=== PATIENT | female | born 1935 | race Caucasian/White ===

== ENCOUNTER 2018-02-10 01:03 | Outpatient (CLI) | payer MEDICARE, MEDICAID, SELFPAY ==
[2018-02-10 12:05] LABS: Microalb ug/mg Crea 4.7 ug/mg Cr
[2018-02-10 12:19] LABS: Hemoglobin A1C 7.6 % (4.5-6.2)
[2018-02-10 12:36] LABS: Vitamin B12 581 pg/mL (193-986)
== END 2018-02-10 01:23 ==
PROVIDERS: PCP Family Medicine; Visit Provider Family Medicine
DX: E11.9 Type 2 diabetes mellitus without complications (principal); E53.8 Deficiency of other specified B group vitamins
CPT/HCPCS: 36415; 82043; 82570; 82607; 83036

== ENCOUNTER 2018-02-17 09:14 | Outpatient (CLI) | payer MEDICARE, MEDICAID, SELFPAY ==
[2018-02-17 11:13] LABS: Bilirubin Negative (Negative); Blood Small (Negative); Clarity Clear; Glucose 100 mg/dL (Negative); Ketones Negative (Negative); Leukocyte Esterase Trace (Negative); Nitrite Negative (Negative); Urobilinogen 0.2 EU/dL (Up TO 0.2)
[2018-02-17 11:23] LABS: Bacteria Few HPF (Negative); Crystals Negative HPF (Negative); Epithelial Cells Few HPF (Negative); Mucus Negative (Negative); Other Cells Few Renal (Negative); RBC 0-2 (0-2); WBC >50 HPF (0-5)
[2018-02-17 11:24] LABS: C & S Indicated? Yes; Casts Negative LPF (Negative)
== END 2018-02-17 09:34 ==
PROVIDERS: PCP Family Medicine; Visit Provider Family Medicine
DX: N39.0 Urinary tract infection, site not specified (principal); R31.9 Hematuria, unspecified
CPT/HCPCS: 87077; 81003; 81015; 87086; 87186

== ENCOUNTER 2018-03-25 11:30 | Outpatient (REF) | payer MEDICARE, MEDICAID, SELFPAY ==
[2018-03-25 12:31] LABS: Bilirubin Negative (Negative); Blood Small (Negative); Clarity Sl Cloudy; Glucose Negative (Negative); Ketones Negative (Negative); Leukocyte Esterase Moderate (Negative); Nitrite Negative (Negative); Urobilinogen 0.2 EU/dL (Up TO 0.2)
[2018-03-25 12:43] LABS: WBC >50 HPF (0-5)
[2018-03-25 12:44] LABS: Bacteria Many HPF (Negative); C & S Indicated? C&S Done As Ordered; Casts Negative LPF (Negative); Crystals Negative HPF (Negative); Epithelial Cells Many HPF (Negative); Mucus Trace (Negative); Other Cells Rare Renal (Negative); RBC Negative (0-2)
== END 2018-03-25 11:50 ==
LOC: LBN 11:30
PROVIDERS: PCP Family Medicine; Visit Provider Family Medicine
DX: R30.0 Dysuria (principal)
CPT/HCPCS: 87077; 81003; 81015; 87086; 87186

== ENCOUNTER 2018-05-19 02:33 | Outpatient (CLI) | payer MEDICARE, MEDICAID, SELFPAY ==
[2018-05-19 13:15] LABS: HCT 32.8 % (36.0-46.0); HGB 10.9 g/dL (12.0-15.5); Mean Corp. HGB Concentration 33.2 g/dL (32.0-36.0); Mean Corpuscular Hemoglobin 27.7 pg (27.0-33.0); Mean Corpuscular Volume 83.2 fL (80-95); RBC 3.94 m/cumm (4.00-5.20); RBC Distribution Width 16.8 % (11.7-14.6)
[2018-05-19 13:33] LABS: Hemoglobin A1C 8.2 % (4.5-6.2)
[2018-05-19 13:41] LABS: ALT 26 U/L (12-78); AST 17 U/L (15-37); Albumin 3.8 g/dL (3.4-5.0); Alkaline Phosphatase 105 U/L (46-116); Anion Gap 6.8 mmol/L (3-11); BUN 25 mg/dL (7-18); Bilirubin, Total 0.6 mg/dL (0.2-1.0); CO2 29.2 mmol/L (21.0-32.0); CREATININE 1.03 mg/dL (0.55-1.02); Calcium 8.9 mg/dL (8.5-10.1); Chloride 105 mmol/L (98-107); Glucose 182 mg/dL (70-100); Potassium 4.1 mmol/L (3.5-5.1); Sodium 141 mmol/L (136-145); TSH (W/Ref FT4) 1.61 uIU/mL (0.358-3.74); Total Protein 6.2 g/dL (6.4-8.2)
[2018-05-19 13:48] LABS: Platelet Count 25 x1000/uL (130-400)
== END 2018-05-19 02:53 ==
PROVIDERS: PCP Family Medicine; Visit Provider Family Medicine
DX: K59.09 Other constipation (principal); R42 Dizziness and giddiness; E11.8 Type 2 diabetes mellitus with unspecified complications; D61.818 Other pancytopenia; E78.5 Hyperlipidemia, unspecified; G43.909 Migraine, unspecified, not intractable, without status migrainosus; G47.00 Insomnia, unspecified; G89.4 Chronic pain syndrome
CPT/HCPCS: 36415; 80053; 85027; 83036; 84443

== ENCOUNTER 2018-05-26 09:01 | Outpatient (CLI) | payer MEDICARE, MEDICAID, SELFPAY ==
[2018-05-26 11:46] LABS: HCT 32.8 % (36.0-46.0); HGB 11.1 g/dL (12.0-15.5); Mean Corp. HGB Concentration 33.8 g/dL (32.0-36.0); Mean Corpuscular Hemoglobin 27.8 pg (27.0-33.0)
[2018-05-26 12:01] LABS: Platelet Count 31 x1000/uL (130-400)
== END 2018-05-26 09:21 ==
PROVIDERS: PCP Family Medicine; Visit Provider Family Medicine
DX: D69.6 Thrombocytopenia, unspecified (principal); D70.9 Neutropenia, unspecified
CPT/HCPCS: 36415; 85027

== ENCOUNTER → 2018-05-28 08:32 | Outpatient (BNVA) | payer MEDICARE, MEDICAID, SELFPAY | PROVIDERS: PCP Family Medicine; Visit Provider Nurse Practitioner Adult Health | DX: E11.40 Type 2 diabetes mellitus with diabetic neuropathy, unspecified (principal); R42 Dizziness and giddiness; I95.1 Orthostatic hypotension; R51 Headache; G31.84 Mild cognitive impairment of uncertain or unknown etiology; E11.319 Type 2 diabetes mellitus with unspecified diabetic retinopathy without macular edema; I10 Essential (primary) hypertension; Z79.4 Long term (current) use of insulin | CPT/HCPCS: 99215 ==

== ENCOUNTER 2018-05-29 13:36 | Outpatient (CLI) | payer MEDICARE, MEDICAID, SELFPAY ==
[2018-05-29 14:36] LABS: HCT 32.3 % (36.0-46.0); Mean Corp. HGB Concentration 34.1 g/dL (32.0-36.0); Mean Corpuscular Hemoglobin 28.2 pg (27.0-33.0); Mean Corpuscular Volume 82.8 fL (80-95); RBC Distribution Width 16.6 % (11.7-14.6)
[2018-05-29 15:13] LABS: White Blood Cell Count 0.54 k/cumm (4.4-10.8)
[2018-05-29 15:16] LABS: Platelet Count 26 x1000/uL (130-400)
[2018-05-29 15:17] LABS: Absolute Neutrophil Count 0.13 k/cumm (1.2-6.7)
[2018-05-29 15:19] LABS: Absolute Lymphocyte Count 0.37 k/cumm (1.2-3.4); Absolute Monocyte Count 0.04 k/cumm (0.11-0.7)
[2018-05-29 15:20] LABS: Diff Comment Manual Differential
[2018-05-29 15:21] LABS: Polychromasia Present
[2018-05-29 15:22] LABS: ESR 24 MM/HR (0-30); Poikilocytes 2+
[2018-05-30 12:11] LABS: Albumin 61.4 % (55.8-66.1); Total Protein 6.1 g/dl (6.3-8.2)
== END 2018-05-29 13:56 ==
PROVIDERS: Nurse Practitioner Adult Health; PCP Family Medicine; Referring Provider Psychiatry & Neurology Neurology; Visit Provider Internal Medicine
DX: G62.9 Polyneuropathy, unspecified (principal); D61.818 Other pancytopenia
CPT/HCPCS: 36415; 84166; 85652; 86850; 86900; 86901; 84165; 85025

== ENCOUNTER 2018-06-02 01:31 | Outpatient (CLI) | payer MEDICARE, MEDICAID, SELFPAY ==
[2018-06-02 09:04] LABS: HCT 31.4 % (36.0-46.0); HGB 10.5 g/dL (12.0-15.5); Mean Corp. HGB Concentration 33.4 g/dL (32.0-36.0); Mean Corpuscular Hemoglobin 27.9 pg (27.0-33.0); Mean Corpuscular Volume 83.3 fL (80-95); Mean Platelet Volume 9.2 fL (8.0-11.0); RBC 3.77 m/cumm (4.00-5.20); RBC Distribution Width 16.6 % (11.7-14.6)
[2018-06-02 09:57] LABS: Absolute Lymphocyte Count 0.37 k/cumm (1.2-3.4); Absolute Monocyte Count 0.08 k/cumm (0.11-0.7)
[2018-06-02 10:00] LABS: Platelet Count 26 x1000/uL (130-400)
[2018-06-02 10:01] LABS: Absolute Neutrophil Count 0.23 k/cumm (1.2-6.7); White Blood Cell Count 0.68 k/cumm (4.4-10.8)
[2018-06-02 10:03] LABS: Anisocytosis 1+; Diff Comment Manual Differential; Poikilocytes 2+
== END 2018-06-02 01:51 ==
LOC: LOS 01:31 → LBO 08:09
PROVIDERS: PCP Family Medicine; Visit Provider Internal Medicine
DX: D61.810 Antineoplastic chemotherapy induced pancytopenia (principal)
CPT/HCPCS: 36415; 86900; 86901; 85025

== ENCOUNTER 2018-06-09 01:54 | Outpatient (CLI) | payer MEDICARE, MEDICAID, SELFPAY ==
[2018-06-09 08:35] LABS: HCT 30.5 % (36.0-46.0); HGB 10.2 g/dL (12.0-15.5); Mean Corp. HGB Concentration 33.4 g/dL (32.0-36.0); Mean Corpuscular Volume 83.8 fL (80-95); Mean Platelet Volume 11.4 fL (8.0-11.0); RBC 3.64 m/cumm (4.00-5.20); RBC Distribution Width 16.7 % (11.7-14.6)
[2018-06-09 09:19] LABS: Platelet Count 24 x1000/uL (130-400); White Blood Cell Count 0.75 k/cumm (4.4-10.8)
[2018-06-09 09:20] LABS: Absolute Lymphocyte Count 0.49 k/cumm (1.2-3.4); Absolute Neutrophil Count 0.15 k/cumm (1.2-6.7)
[2018-06-09 09:21] LABS: Absolute Monocyte Count 0.11 k/cumm (0.11-0.7); Anisocytosis 1+; Diff Comment Manual Differential
[2018-06-09 09:22] LABS: Poikilocytes 2+
== END 2018-06-09 02:14 ==
PROVIDERS: PCP Family Medicine; Visit Provider Internal Medicine
DX: D61.810 Antineoplastic chemotherapy induced pancytopenia (principal)
CPT/HCPCS: 36415; 86900; 86901; 85025

== ENCOUNTER 2018-06-12 09:03 | Outpatient (CLI) | payer MEDICARE, MEDICAID, SELFPAY ==
[2018-06-12 10:56] LABS: Absolute Eosinophil Count 0.01 k/cumm (0.0-0.7); Absolute Lymphocyte Count 0.39 k/cumm (1.2-3.4); Eosinophils % 1.4; HCT 31.5 % (36.0-46.0); HGB 10.3 g/dL (12.0-15.5); Lymphocytes % 52.7; Mean Corp. HGB Concentration 32.7 g/dL (32.0-36.0); Mean Corpuscular Hemoglobin 27.4 pg (27.0-33.0); Mean Corpuscular Volume 83.8 fL (80-95); Mean Platelet Volume 10.1 fL (8.0-11.0); Monocytes % 13.5; Neutrophils % 32.4; RBC 3.76 m/cumm (4.00-5.20)
[2018-06-12 11:21] LABS: White Blood Cell Count 0.74 k/cumm (4.4-10.8)
[2018-06-12 11:22] LABS: Absolute Neutrophil Count 0.24 k/cumm (1.2-6.7); Platelet Count 25 x1000/uL (130-400)
[2018-06-12 11:24] LABS: Diff Comment Agrees w/ Instrument
== END 2018-06-12 09:23 ==
PROVIDERS: PCP Family Medicine; Visit Provider Internal Medicine
DX: D61.810 Antineoplastic chemotherapy induced pancytopenia (principal)
CPT/HCPCS: 36415; 86900; 86901; 85025

== ENCOUNTER 2018-06-19 01:53 | Outpatient (CLI) | payer MEDICARE, MEDICAID, SELFPAY ==
[2018-06-19 15:19] LABS: Absolute Eosinophil Count 0.01 k/cumm (0.0-0.7); Absolute Lymphocyte Count 0.29 k/cumm (1.2-3.4); Absolute Monocyte Count 0.06 k/cumm (0.11-0.7); HCT 31.3 % (36.0-46.0); HGB 10.2 g/dL (12.0-15.5); Lymphocytes % 59.2; Mean Corp. HGB Concentration 32.6 g/dL (32.0-36.0); Mean Corpuscular Hemoglobin 27.6 pg (27.0-33.0); Mean Corpuscular Volume 84.8 fL (80-95); Mean Platelet Volume 10.2 fL (8.0-11.0); Monocytes % 12.2; RBC 3.69 m/cumm (4.00-5.20); RBC Distribution Width 17.3 % (11.7-14.6)
[2018-06-19 15:58] LABS: Absolute Neutrophil Count 0.13 k/cumm (1.2-6.7); White Blood Cell Count 0.49 k/cumm (4.4-10.8)
[2018-06-19 15:59] LABS: Platelet Count 30 x1000/uL (130-400)
[2018-06-19 16:01] LABS: Diff Comment Agrees w/ Instrument
[2018-06-19 16:02] LABS: Anisocytosis 2+; Hypochromasia 2+; Neutrophils % 26.6; Ovalocytes 2+
[2018-06-19 16:03] LABS: Poikilocytes 2+
== END 2018-06-19 02:13 ==
PROVIDERS: PCP Family Medicine; Visit Provider Internal Medicine
DX: D46.Z Other myelodysplastic syndromes (principal)
CPT/HCPCS: 36415; 86900; 86901; 85025

== ENCOUNTER 2018-06-23 02:05 | Outpatient (CLI) | payer MEDICARE, MEDICAID, SELFPAY | END 2018-06-23 02:25 | PROVIDERS: PCP Family Medicine; Visit Provider Internal Medicine | DX: D61.810 Antineoplastic chemotherapy induced pancytopenia (principal) | CPT/HCPCS: 36415; 86900; 86901; 85025 ==

== ENCOUNTER 2018-07-03 01:13 | Outpatient (RCR) | payer MEDICARE, MEDICAID, SELFPAY ==
[2018-06-23 09:30] LABS: HCT 29.4 % (36.0-46.0); HGB 9.8 g/dL (12.0-15.5); Mean Corp. HGB Concentration 33.3 g/dL (32.0-36.0); RBC Distribution Width 16.7 % (11.7-14.6)
[2018-06-23 09:59] LABS: White Blood Cell Count 0.46 k/cumm (4.4-10.8)
[2018-06-23 10:00] LABS: Platelet Count 19 x1000/uL (130-400)
[2018-06-23 10:02] LABS: Absolute Neutrophil Count 0.09 k/cumm (1.2-6.7)
[2018-06-23 10:04] LABS: Absolute Lymphocyte Count 0.35 k/cumm (1.2-3.4); Absolute Monocyte Count 0.02 k/cumm (0.11-0.7)
[2018-06-23 10:05] LABS: Anisocytosis 2+; Diff Comment Manual Differential; Ovalocytes 2+; Poikilocytes 2+
[2018-06-24] MEDS: Normal Saline Flush 10 ML SYR IVP (13:00)
[2018-06-24 14:08] VITALS: BP 135/51; PULSE 71; RESP 18; TEMP 36.8; O2SAT 97
[2018-06-24 14:23] VITALS: BP 140/62; PULSE 66; RESP 18; TEMP 36.5; O2SAT 96
[2018-06-24 14:35] VITALS: BP 162/53; PULSE 70; TEMP 36.5; O2SAT 98
[2018-06-26 07:40] LABS: ALT 43 U/L (12-78); AST 26 U/L (15-37); Alkaline Phosphatase 101 U/L (46-116); Anion Gap 10.1 mmol/L (3-11); BUN 29 mg/dL (7-18); Bilirubin, Total 1.1 mg/dL (0.2-1.0); CO2 27.9 mmol/L (21.0-32.0); Calcium 9.2 mg/dL (8.5-10.1); Chloride 104 mmol/L (98-107); Estimated GFR 53.08 (mL/min/1.73m2); Glucose 148 mg/dL (70-100); Potassium 3.9 mmol/L (3.5-5.1); Sodium 142 mmol/L (136-145); Total Protein 6.3 g/dL (6.4-8.2)
[2018-06-26 08:10] LABS: HGB 9.2 g/dL (12.0-15.5); RBC 3.29 m/cumm (4.00-5.20); White Blood Cell Count 0.57 k/cumm (4.4-10.8)
[2018-06-26 08:11] LABS: HCT 27.2 % (36.0-46.0); Mean Corp. HGB Concentration 33.8 g/dL (32.0-36.0); Mean Corpuscular Volume 82.7 fL (80-95); RBC Distribution Width 16.2 % (11.7-14.6)
[2018-06-26 08:14] LABS: Mean Platelet Volume 10.1 fL (8.0-11.0)
[2018-06-26 08:15] LABS: Absolute Eosinophil Count 0.02 k/cumm (0.0-0.7); Absolute Lymphocyte Count 0.48 k/cumm (1.2-3.4); Absolute Monocyte Count 0.02 k/cumm (0.11-0.7); Absolute Neutrophil Count 0.05 k/cumm (1.2-6.7)
[2018-06-26 08:16] LABS: Anisocytosis 1+; Diff Comment Manual Differential; Platelet Count 17 x1000/uL (130-400); Poikilocytes 2+
[2018-06-27 13:46] VITALS: BP 123/47; PULSE 62; RESP 18; TEMP 36.3; O2SAT 98
[2018-06-27] MEDS: Normal Saline Flush 10 ML SYR IVP (14:07)
[2018-06-27 14:21] VITALS: BP 136/52; PULSE 60; TEMP 36.3; O2SAT 99
[2018-06-30 09:30] LABS: ALT 35 U/L (12-78); AST 23 U/L (15-37); Albumin 3.9 g/dL (3.4-5.0); Alkaline Phosphatase 105 U/L (46-116); Anion Gap 8.5 mmol/L (3-11); BUN 24 mg/dL (7-18); CO2 27.5 mmol/L (21.0-32.0); CREATININE 1.03 mg/dL (0.55-1.02); Calcium 8.4 mg/dL (8.5-10.1); Chloride 105 mmol/L (98-107); Glucose 174 mg/dL (70-100); HCT 25.3 % (36.0-46.0); HGB 8.8 g/dL (12.0-15.5); Mean Corp. HGB Concentration 34.8 g/dL (32.0-36.0); Mean Corpuscular Hemoglobin 28.7 pg (27.0-33.0); Mean Corpuscular Volume 82.4 fL (80-95); Potassium 3.8 mmol/L (3.5-5.1); RBC 3.07 m/cumm (4.00-5.20); RBC Distribution Width 16.1 % (11.7-14.6); Sodium 141 mmol/L (136-145); Total Protein 6.5 g/dL (6.4-8.2); White Blood Cell Count 0.42 k/cumm (4.4-10.8)
[2018-06-30 09:31] LABS: Absolute Lymphocyte Count 0.39 k/cumm (1.2-3.4); Absolute Monocyte Count 0.01 k/cumm (0.11-0.7); Absolute Neutrophil Count 0.02 k/cumm (1.2-6.7); Platelet Count 17 x1000/uL (130-400)
[2018-06-30 09:32] LABS: Anisocytosis 2+; Diff Comment Manual Differential
[2018-06-30 09:33] LABS: Poikilocytes 2+
[2018-07-01 07:20] VITALS: BP 124/71; PULSE 66; RESP 18; TEMP 36; O2SAT 98
[2018-07-01] MEDS: Normal Saline Flush 10 ML SYR IVP (09:13)
== END 2018-07-03 23:59 | disposition home or self-care (01) ==
LOC: INF 01:13
PROVIDERS: PCP Family Medicine; Visit Provider Internal Medicine
DX: D46.9 Myelodysplastic syndrome, unspecified (principal)
CPT/HCPCS: 36415; 36430; 80053; 86850; 86900; 86901; 86945; 85025; 86644; P9035

== ENCOUNTER 2018-07-04 07:43 | Emergency (ER) | payer MEDICARE, MEDICAID, SELFPAY ==
[2018-07-04] VITALS (55 sets, daily range): BP systolic 119–176; BP diastolic 44–63; PULSE 64–91; RESP 11–19; TEMP 36.6–37.1; O2SAT 87–100
--- NOTE | 2018-07-04 07:54 | DI.RAD_ITS ---
SYMPTOM/DIAGNOSIS: CHEST PAIN PORTABLE AP CHEST: The heart is enlarged. An implanted cardiac technician device is again noted. The lungs are not well inflated. No gross focal infiltrate, effusion or pulmonary edema is seen. IMPRESSION: Cardiomegaly. No acute abnormality.
[2018-07-04] MEDS: Aspirin 81 MG CHEW (08:07)
--- NOTE | 2018-07-04 08:07 | NUR.NOTE ---
patient medicated per MD order Nursing Note:
[2018-07-04 08:10] LABS: Absolute Eosinophil Count 0.01 k/cumm (0.0-0.7); HCT 23.6 % (36.0-46.0); Mean Corp. HGB Concentration 33.9 g/dL (32.0-36.0); Mean Corpuscular Hemoglobin 28.4 pg (27.0-33.0); Mean Corpuscular Volume 83.7 fL (80-95); RBC 2.82 m/cumm (4.00-5.20); RBC Distribution Width 16.1 % (11.7-14.6)
--- NOTE | 2018-07-04 08:21 | DI.CT_ITS ---
SYMPTOM/DIAGNOSIS: CHEST PAIN WITH WIDENED MEDIASTINUM THORAX CTA: CT angiography was performed with multi slice acquisition and multi planar and 3D reconstruction. Comparison is made with chest CT dated 03/05/13. The aorta and pulmonary arteries are well opacified with IV contrast. There is no evidence of pulmonary embolism or aortic dissection. There is no aortic aneurysm. Atherosclerotic changes are seen in the thoracic aorta. No pleural or pericardial effusions are present. An electronic device is seen in the anterior left chest. The lungs show mild respiratory motion and dependent changes. No infiltrate is seen. The visualized portions of the upper abdomen are unremarkable. There are stable thyroid nodules. There are no thoracic compression fractures. Degenerative changes are seen. IMPRESSION: No acute abnormality.
[2018-07-04 08:24] LABS: ALT 32 U/L (12-78); AST 22 U/L (15-37); Alkaline Phosphatase 120 U/L (46-116); Anion Gap 9.5 mmol/L (3-11); BUN 25 mg/dL (7-18); Bilirubin, Total 0.6 mg/dL (0.2-1.0); CO2 28.5 mmol/L (21.0-32.0); CREATININE 0.91 mg/dL (0.55-1.02); Calcium 9.3 mg/dL (8.5-10.1); Chloride 103 mmol/L (98-107); Estimated GFR 59.18 (mL/min/1.73m2); Glucose 169 mg/dL (70-100); PTT Activated 22.2 sec (21.0-31.4); Prothrombin Time 10.2 sec (9.3-11.0); Sodium 141 mmol/L (136-145); Troponin I 0.03 ng/mL (0.00-0.06)
[2018-07-04 08:41] LABS: White Blood Cell Count 0.43 k/cumm (4.4-10.8)
[2018-07-04 08:42] LABS: Absolute Neutrophil Count 0.01 k/cumm (1.2-6.7)
[2018-07-04 08:44] LABS: Absolute Monocyte Count 0.02 k/cumm (0.11-0.7); Platelet Count 28 x1000/uL (130-400)
[2018-07-04 08:46] LABS: Anisocytosis 1+; Ovalocytes 2+; Polychromasia Present
[2018-07-04 08:47] LABS: Diff Comment Manual Differential; Poikilocytes 2+
[2018-07-04] MEDS: Omnipaque 350 MG/ML 100 ML BTL IJ (08:47)
--- NOTE | 2018-07-04 09:05 | W.ED.GENAD ---
Discharge Plan Disposition Patient Disposition: [facility] Condition: Stable Discharge Details Chief Complaint: Chest Pain Clinical Impression: Acute non-ST elevation myocardial infarction (NSTEMI) Primary Care Provider: Manuela Rowe ED Provider: Yasmani Barragan Home Meds and New Rx's Prescriptions: No Action Shingrix Adjuvant Component-PF suspension 1 ml IM ONCE Qty: 0.5 RF: 1 docusate sodium [Colace] 100 mg capsule 100 mg PO DAILY RF: 0 fiber tablet,chewable PO DAILY RF: 0 ascorbic acid (vitamin C) [Vitamin C] 500 MG tablet 500 mg PO DAILY Qty: 1 RF: 0 vitamin B complex [B Complex-Vitamin B12] 1 EACH tablet 1 ea PO DAILY Qty: 1 RF: 0 cholecalciferol (vitamin D3) 1,000 UNIT capsule 1,000 unit PO DAILY Qty: 1 RF: 0 magnesium oxide 400 MG capsule 400 mg PO DAILY RF: 0 Zostavax (PF) 19,400 UNIT/0.65 ML suspension for reconstitution 19,400 unit SQ ONCE Qty: 1 RF: 0 BD Insulin Syringe 1 EACH syringe 1 syringe Sub-Q 4-5 times daily Qty: 300 RF: 12 polyethylene glycol 3350 [GlycoLax] 527 GM powder 17 g PO BID PRNQty: 6 RF: 11 Blood Glucose Test 1 EACH strip 1 ea Miscellaneous TID Qty: 400 RF: 0 Pen Needle 1 EACH needle 1 ea Miscellaneous QID Qty: 360 RF: 12 lancets 1 EACH misc 1 ea Miscellaneous TID Qty: 400 RF: 0 pantoprazole [Protonix] 40 MG tablet,delayed release (DR/EC) 40 mg PO DAILY Qty: 90 RF: 12 naproxen 250 MG tablet 250 mg PO Q12H PRN Qty: 180 RF: 3 sennosides [senna] 8.6 MG tablet 2 tab-cap PO DAILY Qty: 180 RF: 12 clopidogrel 75 MG tablet 75 mg PO DAILY Qty: 90 RF: 12 aspirin [Aspir-81] 81 MG tablet,delayed release (DR/EC) 81 mg PO DAILY Qty: 90 RF: 12 amlodipine 10 MG tablet 10 mg PO DAILY Qty: 90 RF: 12 nitroglycerin [Nitrostat] 0.4 MG tablet, sublingual 0.4 mg Sublingual PRN MDD 3 Qty: 25 RF: 12 lorazepam 0.5 MG tablet 1 tab PO BID PRNQty: 180 RF: 3 mirtazapine 15 MG tablet 15 mg PO DAILY Qty: 90 RF: 11 atorvastatin 40 MG tablet 40 mg PO HS Qty: 90 RF: 12 losartan 100 MG tablet 100 mg PO DAILY Qty: 90 RF: 12 estradiol [Estrace] 0.01 % (0.1 mg/gram) cream 1 g VG 2 times weekly Qty: 42.5 RF: 0 Novolog Flexpen U-100 Insulin 100 unit/mL insulin pen See Rx Instructions subcut AC Qty: 45 RF: 6 Levemir FlexTouch U-100 Insuln 100 unit/mL (3 mL) insulin pen 25 unit subcut DAILY Qty: 45 RF: 12 fentanyl [Duragesic] 12 mcg/hr patch 72 hour 1 patch TD Q72H MDD 1 RF: 0 Medical Decision Making This is a pleasant 82-year-old female with past medical history of cardiac disease with stents, myelodysplastic syndrome, thrombocytopenia, who presents today for evaluation of chest pain. She was receiving platelet transfusions, and as soon as it ended she developed notable chest pain shortness of breath and a heaviness on her chest. She immediately came down to the ER for further evaluation. EKG shows a left bundle branch block which per [facility] EKG is not new, however there is depressions in the lateral leads which does appear to be new. The patient was given nitroglycerin which improved her pain from a 6 to a 2. Initial chest x-ray was ordered and demonstrated concern for widened mediastinum. With the history of chest pain, there was concern for potential aortic dissection. Emergent CT was ordered for further evaluation of this. CT scan shows no evidence of dissection aneurysm or pneumonia. With the dynamic EKG changes that do not meet for SCARBOSSA criterion, there is no indication for TPA at this time. However we did contact [facility] and I did speak with Dr. Ramirez of cardiology who did recommend heparinization at this time as well as transfer for potential cardiac catheterization. We did contact Dr. Contreras from hematology at [facility] and they also agreed with heparinization for the time being with close monitoring of the platelets maintaining the platelets greater than 20. No current beds are available at [facility], we did reach out to [facility], and there are no beds available there at this time either however she is on the list for transfer. 10 AM On reassessment the patient's pain is notably returned and is worsened. We have started her on a nitroglycerin drip which is now brought her pain down to a 2 or 1. EKG was ordered during this phase and did show evidence of worsening of the ST changes on her lateral leads. We again contacted [facility] and discussed this with them, patient has been moved up to the #1 spot for transfer at this time once bed availability is present. Recommended continued heparinization and nitroglycerin drip. 11 AM I have had over 30 minutes of conversation with the patient, in conjunction with care management. Patient and family requesting further direction on end-of-life thoughts. We did reach out to both palliative care physicians however unfortunately they are both on vacation right now. After a long and lengthy discussion the patient is willing for continued medical management at this time with heparin and nitroglycerin, and she is keeping the thought of cardiac catheterization in mind, in spite of her difficult episode with it on her last interventional procedure at [facility]. She is also agreed to transfer to [facility] for definitive medical management, cardiology and hematology consultation, and potential catheterization if the necessity is deemed appropriate. At this time we are currently waiting on bed placement at [facility]. Cardiology still recommends holding off on TPA\TNK at this time. Once bed placement is found the patient will be admitted under Dr. Forman of cardiology 1:54 PM Repeat troponin has returned and is notably elevated at 0.11. Repeat EKG was performed, the patient still remains pain-free at this time on nitro drip. ST depressions in the lateral leads have improved. The patient is still negative for SCarbossa criterion. Still awaiting placement options at [facility]. 7:20 PM The patient has been doing very well here in the ED. With the nitroglycerin drip continuing and the heparin continuing, she has had no continued pain. She remains hemodynamically stable. [facility] has excepted the patient for bed placement. Patient will be transferred by [facility]. I have extensively reviewed the treatment plan with the patient. I have addressed all patient concerns at this time. I have also discussed the plan with the admitting physician and they agree with the current assessment and plan and have agreed to assume responsibility for the patient. All parties demonstrate verbal understanding and agreement with our assessment and plan at this time. EKG 7: 50 Rate 88, left bundle branch block, [address] depression in V5 and V6, this is concordant in V5 and discordant and V6. No ST elevations or depressions meeting for SCARBOSSA Criterion. Compared to prior EKG from 07/21/16 the bundle and these changes are new however per [facility] the EKG performed in 2018 demonstrates a consistent left bundle. This was confirmed by Dr. Ramirez. EKG 9: 00 Rate 87, sinus rhythm with a left bundle branch block, ST depression in V4 V5 and V6 is increased from prior EKG. There is 2 mm of depression in V4, 1.5 mm depression in V5, and 1 mm depression in V6 and V3. No significant reciprocal elevations. No other changes. EKG reviewed with [facility] EKG 13: 46 Rate 71, sinus rhythm, left bundle branch block, ST depression in V4 V5 V6 has resolved, now there are only T wave inversions there. No significant ST elevation. THORAX CTA: CT angiography was performed with multi slice acquisition and multi planar and 3D reconstruction. Comparison is made with chest CT dated 03/05/13. The aorta and pulmonary arteries are well opacified with IV contrast. There is no evidence of pulmonary embolism or aortic dissection. There is no aortic aneurysm. Atherosclerotic changes are seen in the thoracic aorta. No pleural or pericardial effusions are present. An electronic device is seen in the anterior left chest. The lungs show mild respiratory motion and dependent changes. No infiltrate is seen. The visualized portions of the upper abdomen are unremarkable. There are stable thyroid nodules. There are no thoracic compression fractures. Degenerative changes are seen. IMPRESSION: No acute abnormality. PORTABLE AP CHEST: The heart is enlarged. An implanted sports physiologist device is again noted. The lungs are not well inflated. No gross focal infiltrate, effusion or pulmonary edema is seen. IMPRESSION: Cardiomegaly. No acute abnormality. HPI General Date/Time Provider Initiated Documentation: 07/04/18 07:43. HPI Narrative: This is a 82-year-old female with a past medical history of myelodysplastic syndrome, thrombocytopenia, chemotherapeutic adjuvant AS01B, cardiac disease with stents, who is on Plavix and aspirin for her stents, who presents today for evaluation of chest pain. She was up in the infusion center receiving platelets and as soon as the infusion ended she suddenly had chest pain, shortness of breath, notable chest pressure. Patient does not recall what her symptoms felt like when she had her STEMI in the past. Patient denies any exertional component, she denies any headache, but she does admit to left shoulder and left arm pain from radiation from her chest pain. She denies any weakness. She denies any vomiting, diarrhea. She has no other complaints at this time. She denies any history of PE, previous issue with transfusions, or other complaints. Related Data Home Medications Medication Instructions Recorded Confirmed ascorbic acid (vitamin C) [Vitamin 500 mg PO DAILY #1 03/19/16 07/04/18 C] cholecalciferol (vitamin D3) 1,000 unit PO DAILY #1 03/19/16 07/04/18 vitamin B complex [B 1 ea PO DAILY #1 03/19/16 07/04/18 Complex-Vitamin B12] magnesium oxide 400 mg PO DAILY 07/30/16 07/04/18 zoster vaccine live (PF) [Zostavax 19,400 unit SQ ONCE #1 vial 10/29/16 07/04/18 Vial] insulin syringe-needle U-100 #300 ndl 10/31/16 05/28/18 [Insulin Syringe] polyethylene glycol 3350 [Glycolax] 17 g PO BID PRN #6 bottle 06/25/17 07/04/18 blood sugar diagnostic [Blood #400 strip 07/04/17 05/28/18 Glucose Test Strip] lancets #400 ea 07/04/17 05/28/18 pen needle, diabetic [Pen Needle] #360 ndl 07/04/17 05/28/18 pantoprazole [Protonix] 40 mg PO DAILY #90 tab-cap 07/22/17 07/04/18 naproxen 250 mg PO Q12H PRN #180 tab-cap 10/14/17 07/04/18 amlodipine 10 mg PO DAILY #90 tab-cap 11/05/17 07/04/18 aspirin [Aspir 81] 81 mg PO DAILY #90 tab-cap 11/05/17 07/04/18 clopidogrel 75 mg PO DAILY #90 tab-cap 11/05/17 07/04/18 lorazepam 1 tab PO BID PRN #180 tab-cap 11/05/17 07/04/18 mirtazapine 15 mg PO DAILY #90 tab-cap 11/05/17 07/04/18 nitroglycerin [Nitrostat] 0.4 mg SUBLINGUAL PRN #25 tab-cap 11/05/17 07/04/18 MDD 3 sennosides [Senna] 2 tab-cap PO DAILY #180 tab-cap 11/05/17 07/04/18 atorvastatin 40 mg PO HS #90 tab-cap 12/19/17 07/04/18 losartan 100 mg PO DAILY #90 tab-cap 12/19/17 07/04/18 adjuvant AS01B (PF), component 1 ml IM ONCE #0.5 ml 02/17/18 07/04/18 vial 1 of 2 intramuscular suspension estradiol 0.01% (0.1 mg/gram) 1 g VG 2 times weekly #42.5 gm 03/12/18 05/28/18 vaginal cream insulin aspart U- 100 100 unit/mL See Rx Instructions SUBCUT AC #45 04/22/18 07/04/18 subcutaneous pen ml insulin detemir (U-100) 100 25 unit SUBCUT DAILY #45 ml 04/22/18 07/04/18 unit/mL (3 mL) subcutaneous pen docusate sodium 100 mg capsule 100 mg PO DAILY 05/28/18 07/04/18 fiber chewable tablet tab PO DAILY tab 05/28/18 05/28/18 fentanyl [Duragesic] 1 patch TD Q72H MDD 1 07/04/18 07/04/18 Previous Rx's Medication Instructions Recorded blood sugar diagnostic [Blood #400 strip 07/04/17 Glucose Test Strip] lancets #400 ea 07/04/17 pen needle, diabetic [Pen Needle] #360 ndl 07/04/17 pantoprazole [Protonix] 40 mg PO DAILY #90 tab-cap 07/22/17 naproxen 250 mg PO Q12H PRN #180 tab-cap 10/14/17 amlodipine 10 mg PO DAILY #90 tab-cap 11/05/17 aspirin [Aspir 81] 81 mg PO DAILY #90 tab-cap 11/05/17 clopidogrel 75 mg PO DAILY #90 tab-cap 11/05/17 mirtazapine 15 mg PO DAILY #90 tab-cap 11/05/17 nitroglycerin [Nitrostat] 0.4 mg SUBLINGUAL PRN #25 tab-cap 11/05/17 MDD 3 sennosides [Senna] 2 tab-cap PO DAILY #180 tab-cap 11/05/17 atorvastatin 40 mg PO HS #90 tab-cap 12/19/17 losartan 100 mg PO DAILY #90 tab-cap 12/19/17 adjuvant AS01B (PF), component 1 ml IM ONCE #0.5 ml 02/17/18 vial 1 of 2 intramuscular suspension estradiol 0.01% (0.1 mg/gram) 1 g VG 2 times weekly #42.5 gm 03/12/18 vaginal cream insulin aspart U- 100 100 unit/mL See Rx Instructions SUBCUT AC #45 04/22/18 subcutaneous pen ml insulin detemir (U-100) 100 25 unit SUBCUT DAILY #45 ml 04/22/18 unit/mL (3 mL) subcutaneous pen Allergies Allergy/AdvReac Type Severity Reaction Status Date / Time celecoxib [From Celebrex] Allergy Severe ? OF HEART Unverified 07/04/18 07:55 PROBLEMS fish derived Allergy Severe ANY KIND Unverified 07/04/18 07:55 OF FISH diazepam Allergy Unknown unkown Unverified 07/04/18 07:55 shellfish derived Allergy Unknown RASH AND Unverified 07/04/18 07:55 FEVER trazodone Allergy chest pain Unverified 07/04/18 07:55 meperidine AdvReac Intermediate SPACE CADET Unverified 07/04/18 07:55 oxycodone [Oxycodone] AdvReac Intermediate Nausea Unverified 07/04/18 07:55 sulfamethoxazole AdvReac Intermediate Nausea, Unverified 07/04/18 07:55 [From Bactrim] Nightmares trimethoprim [From Bactrim] AdvReac Intermediate Nausea, Unverified 07/04/18 07:55 Nightmares acetaminophen AdvReac Unknown GI UPSET Unverified 07/04/18 07:55 codeine AdvReac Unknown Nausea Unverified 07/04/18 07:55 enalapril AdvReac Unknown unknown Unverified 07/04/18 07:55 hydrocodone AdvReac Unknown GI UPSET Unverified 07/04/18 07:55 ibuprofen AdvReac Unknown GI Unverified 07/04/18 07:55 gabapentin AdvReac Nausea and Unverified 07/04/18 07:55 dizziness oxybutynin chloride AdvReac Causes her Unverified 07/04/18 07:55 [From Ditropan] to feel jittery General Stated Complaint: Chest Pain MUSHTAQ: 2 Review of Systems Review of Systems All systems reviewed & are unremarkable except as noted in HPI and below PFSH Medical History White matter disease (Chronic 10/11/14) Vitamin D deficiency (Chronic 10/25/11) Vaginal atrophy (Chronic 11/09/14) Tinnitus (Chronic 11/30/13) Synovial cyst of popliteal space (Chronic) Spinal stenosis of lumbar region (Chronic) Rosacea (Chronic) Recurrent urinary tract infection (Chronic) Pancytopenia (Chronic 09/26/15) Migraine (Chronic) Insomnia (Chronic 04/20/14) Hyperlipidemia (Chronic) Gastroesophageal reflux disease (Chronic) Essential hypertension (Chronic 02/18/13) Diabetic retinopathy (Chronic) Diabetic foot (Chronic 12/27/14) Cerebrovascular accident (Chronic) CVA (cerebral vascular accident) (Chronic) ASCVD (arteriosclerotic cardiovascular disease) (Chronic 02/12/14) Chronic pain disorder (Chronic 01/28/17) Coronary arteriosclerosis (Chronic) Complete heart block (Resolved 03/06/13) Hip pain (Resolved) Pain and swelling of lower leg (Resolved 07/19/14) Syncope and collapse (Resolved) Urinary frequency (Resolved) Surgical History H/O bursectomy (Resolved) H/O cataract removal with insertion of prosthetic lens (Resolved) H/O section (Resolved) History of intravascular stent placement (Resolved) History of operative procedure on lumbosacral spinal structure (Resolved) S/P appendectomy (Resolved) S/P breast biopsy (Resolved) S/P cardiac catheterization (Resolved) S/P carpal tunnel release (Resolved) S/P dilatation and curettage (Resolved) S/P laparoscopic hysterectomy (Resolved) S/P tendon repair (Resolved) S/P tonsillectomy and adenoidectomy (Resolved) Appendectomy Biopsy of breast Bursectomy (~2003) section Dilation and curettage Extraction of cataract Hysterectomy, Laproscopic IT Band Tenotomy LEFT HEART CARDIAC CATH Open Carpal Tunnel release (~2001) Recurrent major depression in partial remission Stent placement Tonsillectomy and adenoidectomy Total replacement of hip Family History Mother Essential hypertension Depression Heart disease Father Diabetes Heart disease Stroke Asthma Alcohol abuse Sister Hyperlipidemia Sister Hyperlipidemia Brother Heart disease Maternal Grandfather Heart disease Paternal Grandfather Heart disease Stroke Maternal Grandmother No problems noted. Paternal Grandmother No problems noted. Daughter No problems noted. Daughter Depression Daughter No problems noted. Social History household members: none highest education level completed: high school graduate current occupational status: retired current occupation: [employer] pets and animals: No frequency: daily duration: 15-30 minutes/day Smoking and Tabacco status: Never alcohol intake: never substance use type: does not use ever/yazidi: Cheondoism special ever needs: No Exam Narrative Exam Narrative: 1.Const: Well-nourished, Well-developed, slightly pale and diaphoretic 2.Eyes: PERRL, no conjunctival injection, and symmetrical lids. 3.ENT: Atraumatic external nose and ears. Moist MM. Neck: Symmetric, trachea midline, No thyromegaly. 4.CVS: +S1/S2, No murmurs or gallops. Peripheral pulses 2+ and equal in all extremities. Brisk capillary refill in all extremities. 5.RESP: Unlabored respiratory effort. Clear to auscultation bilaterally. No wheezes rales or rhonchi 6.GI: Soft, Nontender/Nondistended, No hepatosplenomegaly. No guarding or rebound. 7.MSK: Normocephalic/Atraumatic, Extremities w/o deformity or ttp No cyanosis or clubbing, Normal movement of all extremities 8.Skin: Warm, Dry. No rashes or lesions. 9.Neuro: executive marketing assistant II-XII grossly intact. Sensation grossly intact, no focal neurologic deficits. 10.Psych: (AAO) x3. Appropriate mood and affect Course Vital Signs Pulse Oximetry 100 07/04/18 07:43 Temperature 36.7 C 07/04/18 07:53 Temperature Source Oral 07/04/18 07:53 Pulse 82 07/04/18 08:16 Pulse 80 07/04/18 08:20 Respiratory Rate 18 07/04/18 07:53 Blood Pressure 139/49 L 07/04/18 08:16 Blood Pressure Mean 72 07/04/18 08:16 Pulse Oximetry 96 07/04/18 08:20 Oxygen Delivery Method Room Air 07/04/18 07:53 Oxygen Flow Rate 0 07/04/18 07:53 Pain Level 6 07/04/18 07:53 Lab/Test Results Lab/Test Results: Laboratory Tests Range/Units 07/04/18 07/04/18 07/04/18 07:55 07:55 07:55 WBC (4.4-10.8) k/cumm 0.43 L* RBC (4.00-5.20) m/cumm 2.82 L Hgb (12.0-15.5) g/dL 8.0 L Hct (36.0-46.0) % 23.6 L MCV (80-95) fL 83.7 MCH (27.0-33.0) pg 28.4 MCHC (32.0-36.0) g/dL 33.9 RDW (11.7-14.6) % 16.1 H Plt Count (130-400) x1000/uL 28 L* D MPV (8.0-11.0) fL 10.0 Immature Gran % 0.0 Neutrophils % 2.0 Lymphocytes % 92.0 Monocytes % 4.0 Eosinophils % 2.0 Basophils % 0.0 Absolute Neutrophils (1.2-6.7) k/cumm 0.01 L* Absolute Lymphocytes (1.2-3.4) k/cumm 0.40 L Absolute Monocytes (0.11-0.7) k/cumm 0.02 L Absolute Eosinophils (0.0-0.7) k/cumm 0.01 Absolute Basophils (0.0-0.2) k/cumm 0.00 Differential Comment Manual differential RBC Morphology See below Polychromasia Present Poikilocytosis 2+ Anisocytosis 1+ Ovalocytes 2+ PT (9.3-11.0) sec 10.2 INR (0.9-1.1) 1.0 APTT (21.0-31.4) sec 22.2 Sodium (136-145) mmol/L 141 Potassium (3.5-5.1) mmol/L 4.0 Chloride (98-107) mmol/L 103 Carbon Dioxide (21.0-32.0) mmol/L 28.5 Anion Gap (3-11) mmol/L 9.5 BUN (7-18) mg/dL 25 H Creatinine (0.55-1.02) mg/dL 0.91 Estimated GFR/1.73 m2 (mL/min/1.73m2) 59.18 Glucose (70-100) mg/dL 169 H Calcium (8.5-10.1) mg/dL 9.3 Total Bilirubin (0.2-1.0) mg/dL 0.6 AST (15-37) U/L 22 ALT (12-78) U/L 32 Alkaline Phosphatase (46-116) U/L 120 H Troponin I (0.00-0.06) ng/mL 0.03 Total Protein (6.4-8.2) g/dL 7.0 Albumin (3.4-5.0) g/dL 4.0
[2018-07-04] MEDS: Heparin 5,000 UNITS/ML VIAL 5000 UNITS IV (09:32)
--- NOTE | 2018-07-04 10:25 | NUR.NOTE ---
patient currently chest pain free, will continue to monitor Nursing Note:
--- NOTE | 2018-07-04 10:54 | PDOC.ERCMPRO ---
Care Management Progress Note 07/04-At the request of Dr. Barragan, this CM met with Yessenia and her daughter Catherine for Palliative Care. [facility] service assistant was in the meeting as well. Explained Palliative Care and both are receptive to a referral. Dr. Barragan has entered a Palliative Order and this CM will fax to the Palliative Care Office. Yessenia states she plays cards just about every night. There is a small group of residents at the [facility] that get together. Every they have Hymn singing. Yessenia goes to the mealsite at the [facility] and has lifeline. Yessenia states she falls a lot at home due to dizziness. Both Yessenia and Catherine had questions about options. This CM requested Dr. Barragan who came into the room and discussed options. Yessenia states she is afraid to have another cath as the last one she states was not good for me. Yessenia states she had complications, a lot of bleeding and pain. Yessenia is on blood thinners and is concerned about that. Yessenia and Catherine are also concerned about her upcoming cancer treatments and the effect that the treatment has had on her blood. Please see provider note for medical information. Yessenia openly states to this CM and the Wireless Communications Engineer that I'm not ready to go. She would then state I don't want a cath. At this time, Yessenia would like to try medical management versus any interventions. She would like to discuss with Dr. Rowe, her PCP, but knows she needs to make a decision now. At this time, Yessenia will be transferred to [facility] when bed becomes available. She also receives her cancer treatment at [facility] and [facility]. This CM will continue to support Yessenia and Catherine while they are in the emergency department.
--- NOTE | 2018-07-04 11:14 | CMPROGNOTE_ITS ---
Care Management Progress Note 07/04-At the request of Dr. Barragan, this CM met with Yessenia and her daughter Catherine for Palliative Care. [facility] continuous improvement facilitator was in the meeting as well. Explained Palliative Care and both are receptive to a referral. Dr. Barragan has entered a Palliative Order and this CM will fax to the Palliative Care Office. Yessenia states she plays cards just about every night. There is a small group of residents at the [facility] that get together. Every they have Hymn singing. Yessenia goes to the mealsite at the [facility] and has lifeline. Yessenia states she falls a lot at home due to dizziness. Both Yessenia and Catherine had questions about options. This CM requested Dr. Barragan who came into the room and discussed options. Yessenia states she is afraid to have another cath as the last one she states was not good for me. Yessenia states she had complications, a lot of bleeding and pain. Yessenia is on blood thinners and is concerned about that. Yessenia and Catherine are also concerned about her upcoming cancer treatments and the effect that the treatment has had on her blood. Please see provider note for medical information. Yessenia openly states to this CM and the Tube Test Technician that I'm not ready to go. She would then state I don't want a cath. At this time, Yessenia would like to try medical management versus any interventions. She would like to discuss with Dr. Rowe, her PCP, but knows she needs to make a decision now. At this time, [place]ess[place] [facility] [place]. She also receives her [place] at [facility] [place] [facility] This CM will continue to support Yessenia and Catherine while they are in the emergency department.
[2018-07-04 12:41] LABS: Troponin I 0.11 ng/mL (0.00-0.06)
--- NOTE | 2018-07-04 14:36 | NUR.NOTE ---
no change from previous assessment Nursing Note:
--- NOTE | 2018-07-04 15:19 | NUR.NOTE ---
patient denies chest pain at this time Nursing Note:
--- NOTE | 2018-07-04 16:37 | NUR.NOTE ---
food tray ordered. Nursing Note:
--- NOTE | 2018-07-04 17:12 | NUR.NOTE ---
patient eating dinnerNursing Note:
--- NOTE | 2018-07-04 17:34 | NUR.NOTE ---
patient ate small meal, denies chest pain Nursing Note:
[2018-07-04] MEDS: Insulin Aspart 100 UNITS/ML UNIT SC (17:35)
--- NOTE | 2018-07-04 17:47 | NUR.NOTE ---
patient had moderate size formed stool, no blood noted Nursing Note:
--- NOTE | 2018-07-04 18:31 | NUR.NOTE ---
no change from previous assessment denies chest pain Nursing Note:
--- NOTE | 2018-07-04 19:08 | NUR.NOTE ---
report given to Raul [facility] RN Nursing Note:
[2018-07-04] MEDS: LORazepam 0.5 MG TAB PO (19:32)
== END 2018-07-04 19:45 | disposition short-term general hospital (02) ==
PROVIDERS: Emergency Provider Student in an Organized Health Care Education/Training Program; PCP Family Medicine
DX: I21.4 Non-ST elevation (NSTEMI) myocardial infarction (principal); E11.319 Type 2 diabetes mellitus with unspecified diabetic retinopathy without macular edema; I10 Essential (primary) hypertension; Z95.5 Presence of coronary angioplasty implant and graft
CPT/HCPCS: 36415; 36416; 36430; 71275; 80053; 82962; 86900; 86901; 86945; 93005; 96365; 96368; 96372; 96376; 99285; 71045; 84484; 85025; 85610; 85730; 86880; 93010; J1644; J1815; J3490; P9035

== ENCOUNTER 2018-07-07 01:54 | Outpatient (RCR) | payer MEDICARE, MEDICAID, SELFPAY ==
[2018-07-03 07:21] LABS: Absolute Lymphocyte Count 0.53 k/cumm (1.2-3.4); Absolute Monocyte Count 0.01 k/cumm (0.11-0.7); HCT 24.5 % (36.0-46.0); HGB 8.3 g/dL (12.0-15.5); Lymphocytes % 96.4; Mean Corp. HGB Concentration 33.9 g/dL (32.0-36.0); Mean Corpuscular Hemoglobin 27.9 pg (27.0-33.0); Mean Corpuscular Volume 82.5 fL (80-95); Monocytes % 1.8; Neutrophils % 1.8; RBC 2.97 m/cumm (4.00-5.20); RBC Distribution Width 16.1 % (11.7-14.6)
[2018-07-03 07:47] LABS: ALT 33 U/L (12-78); AST 21 U/L (15-37); Albumin 4.1 g/dL (3.4-5.0); Alkaline Phosphatase 104 U/L (46-116); Anion Gap 5.7 mmol/L (3-11); BUN 24 mg/dL (7-18); Bilirubin, Total 0.9 mg/dL (0.2-1.0); CO2 30.3 mmol/L (21.0-32.0); CREATININE 0.92 mg/dL (0.55-1.02); Calcium 8.9 mg/dL (8.5-10.1); Chloride 106 mmol/L (98-107); Estimated GFR 58.44 (mL/min/1.73m2); Glucose 128 mg/dL (70-100); Potassium 4.1 mmol/L (3.5-5.1); Sodium 142 mmol/L (136-145); Total Protein 6.4 g/dL (6.4-8.2)
[2018-07-03 08:14] LABS: Platelet Count 14 x1000/uL (130-400)
[2018-07-03 08:15] LABS: White Blood Cell Count 0.55 k/cumm (4.4-10.8)
[2018-07-03 08:16] LABS: Absolute Neutrophil Count 0.01 k/cumm (1.2-6.7)
[2018-07-03 08:23] LABS: Diff Comment Agrees w/ Instrument
[2018-07-03 08:24] LABS: Hypochromasia 1+
[2018-07-03 08:25] LABS: Poikilocytes 2+
[2018-07-04 06:58] VITALS: BP 144/51; PULSE 70; RESP 18; TEMP 36.9; O2SAT 98
[2018-07-04 07:13] VITALS: BP 153/57; PULSE 73; RESP 18; TEMP 36.9; O2SAT 98
== END 2018-08-03 23:59 | disposition home or self-care (01) ==
LOC: INF 01:54
PROVIDERS: PCP Family Medicine; Visit Provider Internal Medicine
DX: D46.9 Myelodysplastic syndrome, unspecified (principal)
CPT/HCPCS: 36430; 80053; 86850; 86900; 86901; 86945; 85025; P9035

== ENCOUNTER 2018-09-15 15:15 | Outpatient (REF) | payer MEDICARE, MEDICAID, SELFPAY ==
[2018-09-15 16:14] LABS: Bilirubin Negative (Negative); Blood Negative (Negative); Clarity Clear; Glucose 100 mg/dL (Negative); Ketones Negative (Negative); Leukocyte Esterase Negative (Negative); Nitrite Negative (Negative); Urobilinogen 0.2 EU/dL (Up TO 0.2); pH 6.5 (5-8)
== END 2018-09-15 15:35 ==
LOC: LBN 15:15
PROVIDERS: PCP Family Medicine; Visit Provider Family Medicine
DX: N39.0 Urinary tract infection, site not specified (principal)
CPT/HCPCS: 81003

== ENCOUNTER 2018-09-16 14:59 | Outpatient (REF) | payer MEDICARE, MEDICAID, SELFPAY ==
[2018-09-16 16:25] LABS: Absolute Basophil Count 0.01 k/cumm (0.0-0.2); Absolute Eosinophil Count 0.04 k/cumm (0.0-0.7); Absolute Lymphocyte Count 0.49 k/cumm (1.2-3.4); Absolute Monocyte Count 0.21 k/cumm (0.11-0.7); Absolute Neutrophil Count 0.82 k/cumm (1.2-6.7); Basophils % 0.6; Eosinophils % 2.5; HGB 11.4 g/dL (12.0-15.5); Lymphocytes % 31.2; Mean Corp. HGB Concentration 32.6 g/dL (32.0-36.0); Mean Corpuscular Hemoglobin 28.1 pg (27.0-33.0); Mean Corpuscular Volume 86.2 fL (80-95); Mean Platelet Volume 9.8 fL (8.0-11.0); Monocytes % 13.4; Neutrophils % 52.3; RBC 4.06 m/cumm (4.00-5.20); RBC Distribution Width 15.1 % (11.7-14.6)
[2018-09-16 16:26] LABS: ALT 26 U/L (12-78); AST 16 U/L (15-37); Albumin 3.3 g/dL (3.4-5.0); Alkaline Phosphatase 104 U/L (46-116); Anion Gap 9.3 mmol/L (3-11); BUN 11 mg/dL (7-18); Bilirubin, Total 0.4 mg/dL (0.2-1.0); CO2 26.7 mmol/L (21.0-32.0); CREATININE 0.95 mg/dL (0.55-1.02); Calcium 8.6 mg/dL (8.5-10.1); Chloride 102 mmol/L (98-107); Estimated GFR 56.18 (mL/min/1.73m2); Glucose 201 mg/dL (70-100); Potassium 4.2 mmol/L (3.5-5.1); Sodium 138 mmol/L (136-145); Total Protein 5.8 g/dL (6.4-8.2)
[2018-09-16 18:47] LABS: White Blood Cell Count 1.57 k/cumm (4.4-10.8)
[2018-09-16 18:48] LABS: Anisocytosis 1+; Diff Comment Diff Reviewed; Platelet Count 76 x1000/uL (130-400); Poikilocytes 2+
== END 2018-09-16 15:19 ==
LOC: LBN 14:59
PROVIDERS: PCP Family Medicine; Visit Provider Family Medicine
DX: R53.83 Other fatigue (principal); D72.9 Disorder of white blood cells, unspecified; E11.319 Type 2 diabetes mellitus with unspecified diabetic retinopathy without macular edema
CPT/HCPCS: 80053; 83036; 85025